=== PATIENT | male | born 1960 | race Caucasian/White ===

== ENCOUNTER → 2016-12-09 | Outpatient (CLI) | payer OTHER ==
--- NOTE | 2016-12-09 11:30 | KCIC ---
Single view the orbits INDICATION: MRI clearance FINDINGS: There is no radiographic evidence for presence of a metallic foreign body overlying the orbits. IMPRESSION: No radiographic evidence for presence of metallic foreign body overlying the orbits. Electronically signed by: Robert Amaya MD (12/09/2016 11:27 AM)
--- NOTE | 2016-12-09 12:09 | KCIC ---
MRI right knee without contrast dated 12/09/2016 11:00 AM Indication: Right knee pain injury in the recent months. Pain is anteromedial, felt pop in knee. Comparison: No comparison is available. Technique: Routine multiplanar multisequence imaging performed. No contrast administered. Findings: Mild tricompartmental hypertrophic change with prominent marginal osteophytes. Thinning and surface irregularity of the articular cartilage throughout. Full-thickness cartilage loss over the weightbearing surfaces medial femoral condyle and medial tibial plateau. There is also full-thickness cartilage loss at the medial and lateral patellar facet and patellar apex with full-thickness cartilage loss at the medial femoral trochlea. Small joint effusion. Small shelflike medial patellar plica partially covers the medial femoral trochlea. Moderate sized popliteal cyst measures 6.5 cm craniocaudal dimension. There is fluid bright T2 signal tracking along the margins of the medial head gastrocnemius muscle, suggestive of Valentine's cyst rupture. Anterior cruciate and posterior cruciate ligaments are intact. Mild increased signal within the substance of the proximal fibular collateral ligament. There is also mild increased signal along the superficial and deep margins of the MCL complex proximally. Iliotibial band, popliteus tendon and pes anserine compact within normal limits. Quadriceps and patellar tendon are intact. Mild patchy superficial infrapatellar edema, nonspecific. No abnormality of the medial or lateral retinaculum. There is mild lateral patellar subluxation with tibial tubercle trochlear groove distance estimated at 12 mm. Focal radial tear at the medial meniscal root. There is also globular increased signal of the medial meniscal body that does not definitely reach an articular surface. Lateral meniscus normal in morphology and signal. IMPRESSION: 1. [id number] tricompartmental degenerative arthrosis and chondral malacia. There is full-thickness cartilage loss of the medial and anterior compartments. 2. Focal radial tear at the medial meniscal root, likely degenerative. 3. Moderate-sized joint effusion with moderate-sized ruptured popliteal cyst. 4. Mild lateral patellar subluxation. 5. Increased signal within the substance of the proximal fibular collateral ligament, degeneration versus low-grade strain. There is also reactive edema versus low-grade strain involving the MCL complex. Electronically signed by: Tommie Simms MD (12/09/2016 12:06 PM)
== END | disposition home or self-care (01) ==
LOC: KCIC MRI 10:55
PROVIDERS: ATTEND Family Medicine
DX: S83.001D Unspecified subluxation of right patella, subsequent encounter (principal); X58.XXXD Exposure to other specified factors, subsequent encounter
CPT/HCPCS: 70030; 73721